=== PATIENT | male | born 1975 | race Caucasian/White ===

== ENCOUNTER 2016-07-30 13:15 | Outpatient (CLI) | payer MEDICAID | END 2016-07-30 13:16 | disposition home or self-care (01) | DX: Z79.899 Other long term (current) drug therapy (principal); I80.209 Phlebitis and thrombophlebitis of unspecified deep vessels of unspecified lower extremity ==

== ENCOUNTER 2016-08-23 12:30 | Outpatient (CLI) | payer MEDICAID | END 2016-08-23 12:31 | disposition home or self-care (01) | DX: I80.209 Phlebitis and thrombophlebitis of unspecified deep vessels of unspecified lower extremity (principal); Z79.899 Other long term (current) drug therapy ==

== ENCOUNTER 2016-08-28 14:31 | Outpatient (CLI) | payer MEDICAID | END 2016-08-28 14:32 | disposition home or self-care (01) | DX: Z79.899 Other long term (current) drug therapy (principal); I80.209 Phlebitis and thrombophlebitis of unspecified deep vessels of unspecified lower extremity ==

== ENCOUNTER 2016-09-10 13:46 | Outpatient (CLI) | payer MEDICAID | END 2016-09-10 13:47 | disposition home or self-care (01) | DX: I80.209 Phlebitis and thrombophlebitis of unspecified deep vessels of unspecified lower extremity (principal); Z79.899 Other long term (current) drug therapy ==

== ENCOUNTER 2016-09-16 12:32 | Outpatient (CLI) | payer MEDICAID | END 2016-09-16 12:33 | disposition home or self-care (01) | DX: Z79.899 Other long term (current) drug therapy (principal); I80.209 Phlebitis and thrombophlebitis of unspecified deep vessels of unspecified lower extremity; E66.9 Obesity, unspecified; E78.5 Hyperlipidemia, unspecified; I10 Essential (primary) hypertension ==

== ENCOUNTER 2016-09-24 14:31 | Outpatient (CLI) | payer MEDICAID | END 2016-09-24 14:32 | disposition home or self-care (01) | DX: I80.209 Phlebitis and thrombophlebitis of unspecified deep vessels of unspecified lower extremity (principal); Z79.899 Other long term (current) drug therapy ==

== ENCOUNTER 2016-10-02 08:00 | Outpatient (CLI) | payer MEDICAID | END 2016-10-02 08:01 | disposition home or self-care (01) | DX: Z79.899 Other long term (current) drug therapy (principal); I80.209 Phlebitis and thrombophlebitis of unspecified deep vessels of unspecified lower extremity ==

== ENCOUNTER 2016-10-08 12:29 | Outpatient (CLI) | payer MEDICAID | END 2016-10-08 12:30 | disposition home or self-care (01) | DX: Z79.899 Other long term (current) drug therapy (principal); I80.209 Phlebitis and thrombophlebitis of unspecified deep vessels of unspecified lower extremity ==

== ENCOUNTER 2016-10-25 12:29 | Outpatient (CLI) | payer MEDICAID | END 2016-10-25 12:30 | disposition home or self-care (01) | DX: Z79.899 Other long term (current) drug therapy (principal); I80.209 Phlebitis and thrombophlebitis of unspecified deep vessels of unspecified lower extremity ==

== ENCOUNTER 2016-10-30 12:30 | Outpatient (CLI) | payer MEDICAID | END 2016-10-30 12:31 | disposition home or self-care (01) | DX: Z79.899 Other long term (current) drug therapy (principal); I80.209 Phlebitis and thrombophlebitis of unspecified deep vessels of unspecified lower extremity ==

== ENCOUNTER 2016-11-05 08:00 | Outpatient (CLI) | payer MEDICAID | END 2016-11-05 08:01 | disposition home or self-care (01) | DX: I80.209 Phlebitis and thrombophlebitis of unspecified deep vessels of unspecified lower extremity (principal); Z79.899 Other long term (current) drug therapy ==

== ENCOUNTER 2016-11-13 12:36 | Outpatient (CLI) | payer MEDICAID | END 2016-11-13 12:37 | disposition home or self-care (01) | DX: Z79.899 Other long term (current) drug therapy (principal); I80.209 Phlebitis and thrombophlebitis of unspecified deep vessels of unspecified lower extremity ==

== ENCOUNTER 2016-12-02 12:31 | Outpatient (CLI) | payer MEDICAID | END 2016-12-02 12:32 | disposition home or self-care (01) | DX: I80.209 Phlebitis and thrombophlebitis of unspecified deep vessels of unspecified lower extremity (principal); Z79.899 Other long term (current) drug therapy ==

== ENCOUNTER 2016-12-18 12:28 | Outpatient (CLI) | payer MEDICAID | END 2016-12-18 12:29 | disposition home or self-care (01) | LOC: LAB 12:28 | PROVIDERS: ATTEND Family Medicine | DX: I80.209 Phlebitis and thrombophlebitis of unspecified deep vessels of unspecified lower extremity (principal); Z79.899 Other long term (current) drug therapy | CPT/HCPCS: 85610 ==

== ENCOUNTER 2017-01-01 12:30 | Outpatient (CLI) | payer MEDICAID | END 2017-01-01 12:31 | disposition home or self-care (01) | LOC: LAB 12:30 | PROVIDERS: ATTEND Family Medicine | DX: I80.209 Phlebitis and thrombophlebitis of unspecified deep vessels of unspecified lower extremity (principal); Z79.899 Other long term (current) drug therapy | CPT/HCPCS: 85610 ==

== ENCOUNTER 2017-01-20 13:21 | Outpatient (CLI) | payer MEDICAID | END 2017-01-20 13:22 | disposition home or self-care (01) | LOC: LAB 13:21 | PROVIDERS: ATTEND Family Medicine | DX: I80.209 Phlebitis and thrombophlebitis of unspecified deep vessels of unspecified lower extremity (principal); Z79.899 Other long term (current) drug therapy | CPT/HCPCS: 85610 ==

== ENCOUNTER 2017-02-07 13:33 | Outpatient (CLI) | payer MEDICAID | END 2017-02-07 13:34 | disposition home or self-care (01) | LOC: LAB 13:33 | PROVIDERS: ATTEND Family Medicine | DX: I80.209 Phlebitis and thrombophlebitis of unspecified deep vessels of unspecified lower extremity (principal); Z79.899 Other long term (current) drug therapy | CPT/HCPCS: 85610 ==

== ENCOUNTER 2017-02-24 14:30 | Outpatient (CLI) | payer MEDICAID | END 2017-02-24 14:31 | disposition home or self-care (01) | LOC: LAB 14:30 | PROVIDERS: ATTEND Family Medicine | DX: I80.209 Phlebitis and thrombophlebitis of unspecified deep vessels of unspecified lower extremity (principal); Z79.899 Other long term (current) drug therapy | CPT/HCPCS: 85610 ==

== ENCOUNTER 2017-03-05 13:34 | Outpatient (CLI) | payer MEDICAID ==
[2017-03-05 14:09] LABS: CALCIUM 9.1 mg/dL (8.5-10.3); POTASSIUM 3.7 mmol/L (3.5-5.0)
== END 2017-03-05 13:35 | disposition home or self-care (01) ==
LOC: LAB 13:34
PROVIDERS: ATTEND Family Medicine
DX: I10 Essential (primary) hypertension (principal); I80.209 Phlebitis and thrombophlebitis of unspecified deep vessels of unspecified lower extremity; Z79.899 Other long term (current) drug therapy
CPT/HCPCS: 36415; 80048; 85610

== ENCOUNTER 2017-03-25 14:30 | Outpatient (CLI) | payer MEDICAID | END 2017-03-25 14:31 | disposition home or self-care (01) | LOC: LAB 14:30 | PROVIDERS: ATTEND Family Medicine | DX: Z79.899 Other long term (current) drug therapy (principal) | CPT/HCPCS: 85610 ==

== ENCOUNTER 2017-04-01 13:32 | Outpatient (CLI) | payer MEDICAID | END 2017-04-01 13:33 | disposition home or self-care (01) | LOC: LAB 13:32 | PROVIDERS: ATTEND Family Medicine | DX: I80.209 Phlebitis and thrombophlebitis of unspecified deep vessels of unspecified lower extremity (principal); Z79.899 Other long term (current) drug therapy | CPT/HCPCS: 85610 ==

== ENCOUNTER 2017-04-22 11:38 | Outpatient (CLI) | payer MEDICAID | END 2017-04-22 11:39 | disposition home or self-care (01) | LOC: LAB 11:38 | PROVIDERS: ATTEND Family Medicine | DX: I80.209 Phlebitis and thrombophlebitis of unspecified deep vessels of unspecified lower extremity (principal); Z79.899 Other long term (current) drug therapy | CPT/HCPCS: 85610 ==

== ENCOUNTER 2017-05-05 11:33 | Outpatient (CLI) | payer MEDICAID | END 2017-05-05 11:34 | disposition home or self-care (01) | LOC: LAB 11:33 | PROVIDERS: ATTEND Family Medicine | DX: Z53.9 Procedure and treatment not carried out, unspecified reason (principal) | CPT/HCPCS: 85610 ==

== ENCOUNTER 2017-05-15 12:07 | Outpatient (CLI) | payer MEDICAID | END 2017-05-15 12:08 | disposition home or self-care (01) | LOC: LAB 12:07 | PROVIDERS: ATTEND Family Medicine | DX: I80.209 Phlebitis and thrombophlebitis of unspecified deep vessels of unspecified lower extremity (principal); Z79.899 Other long term (current) drug therapy | CPT/HCPCS: 85610 ==

== ENCOUNTER 2017-06-16 11:23 | Outpatient (CLI) | payer MEDICAID | END 2017-06-16 11:24 | disposition home or self-care (01) | LOC: LAB 11:23 | PROVIDERS: ATTEND Family Medicine | DX: I80.209 Phlebitis and thrombophlebitis of unspecified deep vessels of unspecified lower extremity (principal); Z79.899 Other long term (current) drug therapy | CPT/HCPCS: 85610 ==

== ENCOUNTER 2017-07-03 13:05 | Outpatient (CLI) | payer MEDICAID | END 2017-07-03 13:06 | disposition home or self-care (01) | LOC: LAB 13:05 | PROVIDERS: ATTEND Family Medicine | DX: I80.209 Phlebitis and thrombophlebitis of unspecified deep vessels of unspecified lower extremity (principal); Z79.899 Other long term (current) drug therapy | CPT/HCPCS: 85610 ==

== ENCOUNTER 2017-07-15 11:31 | Outpatient (CLI) | payer MEDICAID | END 2017-07-15 11:32 | disposition home or self-care (01) | LOC: LAB 11:31 | PROVIDERS: ATTEND Family Medicine | DX: I80.209 Phlebitis and thrombophlebitis of unspecified deep vessels of unspecified lower extremity (principal); Z79.899 Other long term (current) drug therapy | CPT/HCPCS: 85610 ==

== ENCOUNTER 2017-08-07 10:35 | Outpatient (CLI) | payer MEDICAID | END 2017-08-07 10:36 | disposition home or self-care (01) | LOC: LAB 10:35 | PROVIDERS: ATTEND Family Medicine | DX: I80.209 Phlebitis and thrombophlebitis of unspecified deep vessels of unspecified lower extremity (principal); Z79.899 Other long term (current) drug therapy | CPT/HCPCS: 36415; 85610 ==

== ENCOUNTER 2017-09-01 10:31 | Outpatient (CLI) | payer MEDICAID | END 2017-09-01 10:32 | disposition home or self-care (01) | LOC: LAB 10:31 | PROVIDERS: ATTEND Family Medicine | DX: I80.209 Phlebitis and thrombophlebitis of unspecified deep vessels of unspecified lower extremity (principal); Z79.899 Other long term (current) drug therapy | CPT/HCPCS: 85610 ==

== ENCOUNTER 2017-09-04 12:10 | Outpatient (CLI) | payer MEDICAID | END 2017-09-04 12:11 | disposition home or self-care (01) | LOC: LAB 12:10 | PROVIDERS: ATTEND Family Medicine | DX: Z79.899 Other long term (current) drug therapy (principal); I80.209 Phlebitis and thrombophlebitis of unspecified deep vessels of unspecified lower extremity | CPT/HCPCS: 85610 ==

== ENCOUNTER 2017-09-11 15:00 | Outpatient (CLI) | payer MEDICAID | END 2017-09-11 15:01 | disposition home or self-care (01) | LOC: LAB 15:00 | PROVIDERS: ATTEND Family Medicine | DX: I80.209 Phlebitis and thrombophlebitis of unspecified deep vessels of unspecified lower extremity (principal); Z79.899 Other long term (current) drug therapy | CPT/HCPCS: 85610 ==

== ENCOUNTER 2017-09-18 14:48 | Outpatient (CLI) | payer MEDICAID | END 2017-09-18 14:49 | disposition home or self-care (01) | LOC: LAB 14:48 | PROVIDERS: ATTEND Family Medicine | DX: I80.209 Phlebitis and thrombophlebitis of unspecified deep vessels of unspecified lower extremity (principal); Z79.899 Other long term (current) drug therapy | CPT/HCPCS: 85610 ==

== ENCOUNTER 2017-10-07 11:02 | Outpatient (CLI) | payer MEDICAID | END 2017-10-07 11:03 | disposition home or self-care (01) | LOC: LAB 11:02 | PROVIDERS: ATTEND Family Medicine | DX: I80.209 Phlebitis and thrombophlebitis of unspecified deep vessels of unspecified lower extremity (principal); Z79.899 Other long term (current) drug therapy | CPT/HCPCS: 85610 ==

== ENCOUNTER 2017-10-22 14:18 | Outpatient (CLI) | payer MEDICAID ==
[2017-10-22 15:01] LABS: BASOPHILS % (AUTO) 0.6 %; EOSINOPHILS # (AUTO) 0.3 10^3/uL (0.0-0.7); EOSINOPHILS % (AUTO) 4.1 %; HGB - HEMOGLOBIN 15.7 g/dL (14.0-18.0); LYMPHOCYTES # (AUTO) 1.3 10^3/uL (1.5-3.5); LYMPHOCYTES % (AUTO) 18.2 %; MEAN CORPUSCULAR HEMOGLOBIN 29.9 pg (27.0-31.0); MEAN CORPUSCULAR HGB CONC 34.6 g/dL (32.0-36.0); MEAN CORPUSCULAR VOLUME 86.3 fL (80.0-94.0); MEAN PLATELET VOLUME 8.1 fL (7.4-11.4); MONOCYTES # (AUTO) 0.6 10^3/uL (0.0-1.0); MONOCYTES % (AUTO) 8.2 %; NEUTROPHILS # (AUTO) 4.8 10^3/uL (1.5-6.6); NEUTROPHILS % (AUTO) 68.9 %; PLT - PLATELET COUNT 254 10^3/uL (130-450); RED BLOOD COUNT 5.27 10^6/uL (4.70-6.10); RED CELL DISTRIBUTION WIDTH 13.3 % (12.0-15.0); WHITE BLOOD COUNT 6.9 x10^3/uL (4.8-10.8)
[2017-10-22 15:16] LABS: ALBUMIN 3.9 g/dL (3.2-5.5); ALBUMIN/GLOBULIN RATIO 1.3 (1.0-2.2); ALKALINE PHOSPHATASE 72 IU/L (42-121); ALT ALANINE AMINOTRANSFERASE 22 IU/L (10-60); AST ASPARTATE AMINOTRANSFERASE 20 IU/L (10-42); BILIRUBIN,TOTAL 0.7 mg/dL (0.2-1.0); BUN - BLOOD UREA NITROGEN 15 mg/dL (6-20); CALCIUM 8.9 mg/dL (8.5-10.3); CARBON DIOXIDE - CO2 25 mmol/L (21-32); CHLORIDE 104 mmol/L (101-111); CHOL/HDL RATIO 6.5 (<5.0); CHOLESTEROL 215 mg/dL; CREATININE 1.1 mg/dL (0.6-1.2); GFR - MDRD 74 (>89); GLUCOSE 95 mg/dL (70-100); HDL CHOLESTEROL 33 mg/dL; LDL CHOLESTEROL,CALCULATED 152 mg/dL; LDL/HDL RATIO 4.6 (<3.6); SODIUM 135 mmol/L (135-145); VLDL CHOLESTEROL 30 mg/dL
== END 2017-10-22 14:19 | disposition home or self-care (01) ==
LOC: LAB 14:18
PROVIDERS: ATTEND Family Medicine
DX: I80.209 Phlebitis and thrombophlebitis of unspecified deep vessels of unspecified lower extremity (principal); I10 Essential (primary) hypertension; Z51.81 Encounter for therapeutic drug level monitoring; Z79.899 Other long term (current) drug therapy
CPT/HCPCS: 36415; 80053; 80061; 83721; 85025; 85610

== ENCOUNTER 2017-11-05 13:58 | Outpatient (CLI) | payer MEDICAID | END 2017-11-05 13:59 | disposition home or self-care (01) | LOC: LAB 13:58 | PROVIDERS: ATTEND Family Medicine | DX: I80.209 Phlebitis and thrombophlebitis of unspecified deep vessels of unspecified lower extremity (principal); Z79.899 Other long term (current) drug therapy | CPT/HCPCS: 85610 ==

== ENCOUNTER 2017-11-19 14:01 | Outpatient (CLI) | payer MEDICAID | END 2017-11-19 14:02 | disposition home or self-care (01) | LOC: LAB 14:01 | PROVIDERS: ATTEND Family Medicine | DX: I80.209 Phlebitis and thrombophlebitis of unspecified deep vessels of unspecified lower extremity (principal); Z79.899 Other long term (current) drug therapy | CPT/HCPCS: 85610 ==

== ENCOUNTER 2017-12-10 14:02 | Outpatient (CLI) | payer MEDICAID | END 2017-12-10 14:03 | disposition home or self-care (01) | LOC: LAB 14:02 | PROVIDERS: ATTEND Family Medicine | DX: I80.209 Phlebitis and thrombophlebitis of unspecified deep vessels of unspecified lower extremity (principal); Z79.899 Other long term (current) drug therapy | CPT/HCPCS: 85610 ==

== ENCOUNTER 2017-12-30 15:01 | Outpatient (CLI) | payer MEDICAID | END 2017-12-30 15:02 | disposition home or self-care (01) | LOC: LAB 15:01 | PROVIDERS: ATTEND Family Medicine | DX: I80.209 Phlebitis and thrombophlebitis of unspecified deep vessels of unspecified lower extremity (principal); Z79.899 Other long term (current) drug therapy | CPT/HCPCS: 85610 ==

== ENCOUNTER 2018-01-06 13:56 | Outpatient (CLI) | payer MEDICAID | END 2018-01-06 13:57 | disposition home or self-care (01) | LOC: LAB 13:56 | PROVIDERS: ATTEND Family Medicine | DX: I80.209 Phlebitis and thrombophlebitis of unspecified deep vessels of unspecified lower extremity (principal); Z79.899 Other long term (current) drug therapy | CPT/HCPCS: 85610 ==

== ENCOUNTER 2018-01-20 12:11 | Outpatient (CLI) | payer MEDICAID | END 2018-01-20 12:12 | disposition home or self-care (01) | LOC: LAB 12:11 | PROVIDERS: ATTEND Family Medicine | DX: I80.209 Phlebitis and thrombophlebitis of unspecified deep vessels of unspecified lower extremity (principal); Z79.899 Other long term (current) drug therapy | CPT/HCPCS: 85610 ==

== ENCOUNTER 2018-02-10 13:33 | Outpatient (CLI) | payer MEDICAID | END 2018-02-10 13:34 | disposition home or self-care (01) | LOC: LAB 13:33 | PROVIDERS: ATTEND Family Medicine | DX: I80.209 Phlebitis and thrombophlebitis of unspecified deep vessels of unspecified lower extremity (principal); Z79.899 Other long term (current) drug therapy | CPT/HCPCS: 85610 ==

== ENCOUNTER 2018-02-24 13:35 | Outpatient (CLI) | payer MEDICAID | END 2018-02-24 13:36 | disposition home or self-care (01) | LOC: LAB 13:35 | PROVIDERS: ATTEND Family Medicine | DX: I80.209 Phlebitis and thrombophlebitis of unspecified deep vessels of unspecified lower extremity (principal); Z79.899 Other long term (current) drug therapy | CPT/HCPCS: 85610 ==

== ENCOUNTER 2018-03-17 13:34 | Outpatient (CLI) | payer MEDICAID | END 2018-03-17 13:35 | disposition home or self-care (01) | LOC: LAB 13:34 | PROVIDERS: ATTEND Family Medicine | DX: I80.209 Phlebitis and thrombophlebitis of unspecified deep vessels of unspecified lower extremity (principal); Z79.899 Other long term (current) drug therapy | CPT/HCPCS: 85610 ==

== ENCOUNTER 2018-03-31 13:39 | Outpatient (CLI) | payer MEDICAID | END 2018-03-31 13:40 | disposition home or self-care (01) | LOC: LAB 13:39 | PROVIDERS: ATTEND Family Medicine | DX: I80.209 Phlebitis and thrombophlebitis of unspecified deep vessels of unspecified lower extremity (principal); Z79.899 Other long term (current) drug therapy | CPT/HCPCS: 85610 ==

== ENCOUNTER 2018-04-03 10:35 | Outpatient (CLI) | payer MEDICAID | END 2018-04-03 10:36 | disposition home or self-care (01) | LOC: LAB 10:35 | PROVIDERS: ATTEND Family Medicine | DX: I80.209 Phlebitis and thrombophlebitis of unspecified deep vessels of unspecified lower extremity (principal); Z79.899 Other long term (current) drug therapy | CPT/HCPCS: 85610 ==

== ENCOUNTER 2018-04-14 13:36 | Outpatient (CLI) | payer MEDICAID | END 2018-04-14 13:37 | disposition home or self-care (01) | LOC: LAB 13:36 | PROVIDERS: ATTEND Family Medicine | DX: I80.209 Phlebitis and thrombophlebitis of unspecified deep vessels of unspecified lower extremity (principal); Z79.899 Other long term (current) drug therapy | CPT/HCPCS: 85610 ==

== ENCOUNTER 2018-05-12 13:33 | Outpatient (CLI) | payer MEDICAID | END 2018-05-12 13:34 | disposition home or self-care (01) | LOC: LAB 13:33 | PROVIDERS: ATTEND Family Medicine | DX: I80.209 Phlebitis and thrombophlebitis of unspecified deep vessels of unspecified lower extremity (principal); Z79.899 Other long term (current) drug therapy | CPT/HCPCS: 85610 ==

== ENCOUNTER 2018-06-02 13:38 | Outpatient (CLI) | payer MEDICAID | END 2018-06-02 13:39 | disposition home or self-care (01) | LOC: LAB 13:38 | PROVIDERS: ATTEND Family Medicine | DX: I80.209 Phlebitis and thrombophlebitis of unspecified deep vessels of unspecified lower extremity (principal); Z79.899 Other long term (current) drug therapy | CPT/HCPCS: 85610 ==

== ENCOUNTER 2018-06-08 12:14 | Outpatient (CLI) | payer MEDICAID ==
[2018-06-08 12:50] LABS: ALBUMIN 3.9 g/dL (3.2-5.5); ALBUMIN/GLOBULIN RATIO 1.1 (1.0-2.2); ALKALINE PHOSPHATASE 85 IU/L (42-121); ALT ALANINE AMINOTRANSFERASE 20 IU/L (10-60); AST ASPARTATE AMINOTRANSFERASE 19 IU/L (10-42); BILIRUBIN,TOTAL 0.6 mg/dL (0.2-1.0); BUN - BLOOD UREA NITROGEN 12 mg/dL (6-20); CARBON DIOXIDE - CO2 25 mmol/L (21-32); CHLORIDE 104 mmol/L (101-111); CHOL/HDL RATIO 4.6 (<5.0); CHOLESTEROL 188 mg/dL; CREATININE 1.2 mg/dL (0.6-1.2); GFR - MDRD 67 (>89); GLUCOSE 94 mg/dL (70-100); HDL CHOLESTEROL 41 mg/dL; LDL CHOLESTEROL,CALCULATED 115 mg/dL; LDL/HDL RATIO 2.8 (<3.6); SODIUM 134 mmol/L (135-145); TOTAL PROTEIN 7.4 g/dL (6.7-8.2); VLDL CHOLESTEROL 32 mg/dL
[2018-06-08 12:54] LABS: INR 1.5 (0.8-1.2); PT - PROTHROMBIN TIME 16.4 secs (9.9-12.6)
== END 2018-06-08 12:15 | disposition home or self-care (01) ==
LOC: LAB 12:14
PROVIDERS: ATTEND Family Medicine
DX: I80.209 Phlebitis and thrombophlebitis of unspecified deep vessels of unspecified lower extremity (principal); Z79.899 Other long term (current) drug therapy; E78.5 Hyperlipidemia, unspecified; I10 Essential (primary) hypertension
CPT/HCPCS: 36415; 80053; 80061; 83721; 85610

== ENCOUNTER 2018-06-16 13:35 | Outpatient (CLI) | payer MEDICAID | END 2018-06-16 13:36 | disposition home or self-care (01) | LOC: LAB 13:35 | PROVIDERS: ATTEND Family Medicine | DX: I80.209 Phlebitis and thrombophlebitis of unspecified deep vessels of unspecified lower extremity (principal); Z79.899 Other long term (current) drug therapy | CPT/HCPCS: 85610 ==

== ENCOUNTER 2018-07-01 13:31 | Outpatient (CLI) | payer MEDICAID | END 2018-07-01 13:32 | disposition home or self-care (01) | LOC: LAB 13:31 | PROVIDERS: ATTEND Family Medicine | DX: I80.209 Phlebitis and thrombophlebitis of unspecified deep vessels of unspecified lower extremity (principal); Z79.899 Other long term (current) drug therapy | CPT/HCPCS: 85610 ==

== ENCOUNTER 2018-07-06 13:42 | Outpatient (CLI) | payer MEDICAID | END 2018-07-06 13:43 | disposition home or self-care (01) | LOC: LAB 13:42 | PROVIDERS: ATTEND Family Medicine | DX: I80.209 Phlebitis and thrombophlebitis of unspecified deep vessels of unspecified lower extremity (principal); Z79.899 Other long term (current) drug therapy | CPT/HCPCS: 85610 ==

== ENCOUNTER 2018-07-29 16:04 | Outpatient (CLI) | payer MEDICAID | END 2018-07-29 16:05 | disposition home or self-care (01) | LOC: LAB 16:04 | PROVIDERS: ATTEND Nurse Practitioner | DX: Z79.01 Long term (current) use of anticoagulants (principal) | CPT/HCPCS: 85610 ==

== ENCOUNTER 2018-08-11 13:34 | Outpatient (CLI) | payer MEDICAID | END 2018-08-11 13:35 | disposition home or self-care (01) | LOC: LAB 13:34 | PROVIDERS: ATTEND Nurse Practitioner | DX: Z79.01 Long term (current) use of anticoagulants (principal) | CPT/HCPCS: 85610 ==

== ENCOUNTER 2018-08-25 13:32 | Outpatient (CLI) | payer MEDICAID | END 2018-08-25 13:33 | disposition home or self-care (01) | LOC: LAB 13:32 | PROVIDERS: ATTEND Nurse Practitioner | DX: Z79.01 Long term (current) use of anticoagulants (principal) | CPT/HCPCS: 85610 ==

== ENCOUNTER 2018-08-27 12:11 | Outpatient (CLI) | payer MEDICAID | END 2018-08-27 12:12 | disposition home or self-care (01) | LOC: LAB 12:11 | PROVIDERS: ATTEND Nurse Practitioner | DX: Z79.01 Long term (current) use of anticoagulants (principal) | CPT/HCPCS: 85610 ==

== ENCOUNTER 2018-10-13 12:17 | Outpatient (CLI) | payer MEDICAID | END 2018-10-13 12:18 | disposition home or self-care (01) | LOC: LAB 12:17 | PROVIDERS: ATTEND Nurse Practitioner | DX: Z79.01 Long term (current) use of anticoagulants (principal) | CPT/HCPCS: 85610 ==

== ENCOUNTER 2018-11-18 10:33 | Outpatient (CLI) | payer MEDICAID ==
[2018-11-18 11:20] LABS: BASOPHILS # (AUTO) 0.1 10^3/uL (0.0-0.1); BASOPHILS % (AUTO) 1.1 %; EOSINOPHILS # (AUTO) 0.2 10^3/uL (0.0-0.7); EOSINOPHILS % (AUTO) 2.8 %; HGB - HEMOGLOBIN 15.6 g/dL (14.0-18.0); LYMPHOCYTES # (AUTO) 1.3 10^3/uL (1.5-3.5); LYMPHOCYTES % (AUTO) 20.2 %; MEAN CORPUSCULAR HEMOGLOBIN 29.3 pg (27.0-31.0); MEAN CORPUSCULAR HGB CONC 33.5 g/dL (32.0-36.0); MEAN CORPUSCULAR VOLUME 87.5 fL (80.0-94.0); MEAN PLATELET VOLUME 8.3 fL (7.4-11.4); MONOCYTES # (AUTO) 0.7 10^3/uL (0.0-1.0); MONOCYTES % (AUTO) 10.5 %; NEUTROPHILS # (AUTO) 4.3 10^3/uL (1.5-6.6); NEUTROPHILS % (AUTO) 65.4 %; PLT - PLATELET COUNT 354 10^3/uL (130-450); RED BLOOD COUNT 5.33 10^6/uL (4.70-6.10); RED CELL DISTRIBUTION WIDTH 13.8 % (12.0-15.0); WHITE BLOOD COUNT 6.6 x10^3/uL (4.8-10.8)
[2018-11-18 11:22] LABS: ALBUMIN/GLOBULIN RATIO 1.1 (1.0-2.2); BILIRUBIN,TOTAL 0.6 mg/dL (0.2-1.0); CALCIUM 9.4 mg/dL (8.5-10.3); CREATININE 1.3 mg/dL (0.6-1.2); TOTAL PROTEIN 7.6 g/dL (6.7-8.2)
== END 2018-11-18 10:34 | disposition home or self-care (01) ==
LOC: LAB 10:33
PROVIDERS: ATTEND Nurse Practitioner
DX: Z79.01 Long term (current) use of anticoagulants (principal); R63.4 Abnormal weight loss; R63.0 Anorexia; D68.51 Activated protein C resistance
CPT/HCPCS: 36415; 80053; 83735; 85025; 85610

== ENCOUNTER 2018-11-19 01:40 | Outpatient (CLI) | payer MEDICAID | END 2018-11-19 01:41 | disposition critical access hospital (66) | LOC: EMS 01:40 | PROVIDERS: ATTEND Surgery | DX: M54.9 Dorsalgia, unspecified (principal) | CPT/HCPCS: A0425; A0429 ==

== ENCOUNTER 2018-11-19 01:55 | Emergency (ER) | payer MEDICAID ==
[2018-11-19 02:17] LABS: BILIRUBIN,URINE NEGATIVE (NEGATIVE); GLUCOSE, URINE (UA) NEGATIVE (NEGATIVE); KETONES,URINE (UA) 40 mg/dL (NEGATIVE); LEUKOCYTE ESTERASE, URINE NEGATIVE (NEGATIVE); NITRITE,URINE NEGATIVE (NEGATIVE); OCCULT BLOOD,URINE TRACE-LYSE (NEGATIVE); PROTEIN,URINE TRACE mg/dL (NEGATIVE); UROBILINOGEN,URINE 0.2 (NORMAL) E.U./dL (NORMAL)
[2018-11-19 02:18] LABS: CLARITY,URINE CLEAR (CLEAR)
[2018-11-19 02:21] LABS: BASOPHILS # (AUTO) 0.1 10^3/uL (0.0-0.1); BASOPHILS % (AUTO) 1.2 %; EOSINOPHILS % (AUTO) 0.5 %; HGB - HEMOGLOBIN 15.6 g/dL (14.0-18.0); LYMPHOCYTES # (AUTO) 1.1 10^3/uL (1.5-3.5); LYMPHOCYTES % (AUTO) 10.2 %; MEAN CORPUSCULAR HEMOGLOBIN 29.1 pg (27.0-31.0); MEAN CORPUSCULAR HGB CONC 33.9 g/dL (32.0-36.0); MEAN PLATELET VOLUME 8.1 fL (7.4-11.4); MONOCYTES # (AUTO) 0.6 10^3/uL (0.0-1.0); MONOCYTES % (AUTO) 5.4 %; NEUTROPHILS # (AUTO) 8.5 10^3/uL (1.5-6.6); NEUTROPHILS % (AUTO) 82.7 %; PLT - PLATELET COUNT 366 10^3/uL (130-450); RED BLOOD COUNT 5.35 10^6/uL (4.70-6.10); RED CELL DISTRIBUTION WIDTH 13.9 % (12.0-15.0); WHITE BLOOD COUNT 10.3 x10^3/uL (4.8-10.8)
[2018-11-19 02:26] LABS: ALBUMIN 4.1 g/dL (3.2-5.5); BILIRUBIN,TOTAL 0.8 mg/dL (0.2-1.0); CALCIUM 9.5 mg/dL (8.5-10.3); CREATININE 1.3 mg/dL (0.6-1.2); TOTAL PROTEIN 8.2 g/dL (6.7-8.2)
--- NOTE | 2018-11-19 02:52 | ED Physician Documentation ---
PD HPI BACK PAIN - Stated complaint Stated Complaint: BACK PAIN, N/V - Chief complaint Chief Complaint: Back Pain - History obtained from History obtained from: Patient - History of Present Illness Timing - onset: Enter time (21:00), Today Timing - details: Abrupt onset, Waxing and waning Pain level now: 8 Location: Mid, Lower Quality: Pain Associated symptoms: No: Fever Improves with: Nothing Worsened by: Other (no apparent exacerbating factors) Similar symptoms before: No diagnosis - Additional information Additional information: c/o midline back pain radiating around right flank to RUQ with nausea, vomiting; sudden onset 9 PM. He describes recurrent problems with vomiting with PO intake over several weeks but without pain, and he is scheduled to have outpatient US to assess this symptom. Review of Systems Constitutional: reports: Reviewed and negative Cardiac: reports: Reviewed and negative Respiratory: reports: Reviewed and negative GI: reports: Abdominal Pain, Nausea, Vomiting. denies: Abdominal Swelling, Constipation, Diarrhea : denies: Dysuria, Frequency, Hematuria Skin: reports: Reviewed and negative Musculoskeletal: reports: Back pain PD PAST MEDICAL HISTORY - Past Medical History Past Medical History: Yes Cardiovascular: Hypertension, Deep vein thrombosis Respiratory: None Endocrine/Autoimmune: None GI: GERD, Diverticulitis : None HEENT: None Psych: Depression, Anxiety Musculoskeletal: None Derm: None Other Past Medical History: factor v leiden deficiency - Past Surgical History Past Surgical History: Yes General: EGD Ortho: Other - Present Medications Home Medications: Ambulatory Orders Medication Instructions Recorded Confirmed Carvedilol [Coreg] 12.5 mg PO BID 11/26/12 09/27/15 Lisinopril [Zestril] 20 mg PO DAILY 11/26/12 11/19/18 Omeprazole 20 mg PO QAM 11/26/12 09/27/15 Warfarin [Coumadin] 9 mg PO 1400 11/26/12 09/27/15 buPROPion HCl [Wellbutrin Sr] 400 mg PO ONCEDAILY 11/26/12 09/27/15 Atorvastatin [Lipitor] 20 mg PO DAILY 09/05/15 09/27/15 Doxycycline Hyclate 100 mg PO DAILY 09/05/15 09/27/15 Topiramate 100 mg PO DAILY 09/05/15 09/27/15 Venlafaxine [Effexor] 75 mg PO DAILY 09/05/15 09/27/15 Ondansetron Odt [Zofran] 4 mg TL Q6H PRN #10 tablet 11/19/18 cloNIDine [Catapres] 0.1 mg PO DAILY 11/19/18 11/19/18 oxyCODONE [Roxicodone] 5 - 10 mg PO Q6H PRN #20 tablet 11/19/18 - Allergies Allergies/Adverse Reactions: Allergies Allergy/AdvReac Type Severity Reaction Status Date / Time No Known Drug Allergies Allergy Verified 11/19/18 02:57 - Social History Does the pt smoke?: Yes Smoking Status: Current every day smoker Does the pt drink ETOH?: No PD ED PE NORMAL - Vitals Vital signs reviewed: Yes - General General: Alert and oriented X 3, Well developed/nourished, Other (appears to be in moderate painful distress) - HEENT HEENT: Moist mucous membranes - Neck Neck: Supple, no meningeal sign - Cardiac Cardiac: RRR, No murmur - Respiratory Respiratory: No respiratory distress, Clear bilaterally - Abdomen Abdomen: Soft, Non distended, Other (mild TTP RUQ>RLQ without rebound or gu arding) - Back Back: No CVA TTP, No spinal TTP - Derm Derm: Normal color, Warm and dry, No rash Results - Vitals Vitals: Oxygen O2 Source Room air - Labs Labs: Laboratory Tests 11/19/18 11/19/18 11/19/18 02:05 02:05 02:10 WBC 10.3 RBC 5.35 Hgb 15.6 Hct 46.0 MCV 86.0 MCH 29.1 MCHC 33.9 RDW 13.9 Plt Count 366 MPV 8.1 Neut # (Auto) 8.5 H Lymph # (Auto) 1.1 L [place] # (Auto) 0.6 Eos # (Auto) 0.0 Baso # (Auto) 0.1 Absolute Nucleated RBC 0.02 Nucleated RBC % 0.2 Sodium 137 Potassium 3.7 Chloride 101 Carbon Dioxide 21 Anion Gap 15.0 H BUN 13 Creatinine 1.3 H Estimated GFR (MDRD) 61 L Glucose 137 H Calcium 9.5 Total Bilirubin 0.8 AST 22 ALT 18 Alkaline Phosphatase 98 Total Protein 8.2 Albumin 4.1 Globulin 4.1 Albumin/Globulin Ratio 1.0 Lipase 37 Urine Color YELLOW Urine Clarity CLEAR Urine pH 7.0 Ur Specific [place] 1.015 Urine Protein TRACE Urine Glucose (UA) NEGATIVE Urine Ketones 40 H Urine Occult Blood TRACE-LYSE Urine Nitrite NEGATIVE Urine Bilirubin NEGATIVE Urine Urobilinogen 0.2 (NORMAL) Ur Leukocyte Esterase NEGATIVE Ur Microscopic Review NOT INDICATED Urine Culture Comments NOT INDICATED - Rads (name of study) CT A/P Radiology: Prelim report reviewed, See rad report US abdomen (complete) Radiology: Prelim report reviewed, See rad report PD MEDICAL DECISION MAKING - ED course Complexity details: reviewed results, re-evaluated patient, considered differential, d/w patient ED course: Symptoms responded to IV fluids, zofran, toradol, morphine, and dilaudid. He did require repeat doses of the narcotic medication; he responded to each dose but given repeat doses for recurrence of the pain. We discussed option of admission to the hospital for further treatment and surgical evaluation; he prefers d/c home, as his symptoms have been adequately controlled with the above medications. He expresses concern regarding surgery due to his warfarin; I explained to him that this could be reversed with medication should he require surgery, but that d/c home is reasonable if symptoms are controlled and given lack of fever and reassuring blood tests. He understands he needs to follow up outpatient even if symptoms resolved, and to return immediately if worse in any way. Departure - Departure Disposition: 01 Home, Self Care Clinical Impression: Biliary colic Condition: Good Instructions: ED Gallstone W Biliary Colic Follow-Up: Miki Haley MD [Provider Admit Priv/Credential] - (Call this morning to arrange for next available appointment) Shaunna Garcia DNP [Primary Care Provider] - Prescriptions: Ondansetron Odt [Zofran] 4 mg TL Q6H PRN #10 tablet PRN Reason: Nausea / Vomiting oxyCODONE [Roxicodone] 5 - 10 mg PO Q6H PRN #20 tablet PRN Reason: Pain Discharge Date/Time: 11/19/18 07:49
[2018-11-19] MEDS ORDERED: HYDROmorphone 1 MG/ML CARPUJECT IVP STA ×2 (03:06→04:01)
[2018-11-19] MEDS ORDERED: ONDANSETRON 4 MG/2 ML VIAL IVP STA ×3 (03:06→06:21)
[2018-11-19] MEDS ORDERED: IOVERSOL 320 100 ML VIAL IVP ONE ×2 (03:21→03:40)
--- NOTE | 2018-11-19 03:59 | CT Report ---
Reason: back/abd. pain Procedure Date: 11/19/2018 Accession Number: [id number] / [id number] Procedure: CT - Abdomen/Pelvis W CPT Code: FULL RESULT: EXAM: CT ABDOMEN AND PELVIS EXAM DATE: 11/19/2018 03:42 AM. CLINICAL HISTORY: Back/abdomen pain. COMPARISONS: 07/19/2012 3:23 PM. TECHNIQUE: Routine helical CT imaging was performed through the abdomen and pelvis. IV contrast: 100 mL Optiray 320. Enteric contrast: No. Reconstructions: Coronal and sagittal. In accordance with CT protocol optimization, one or more of the following dose reduction techniques were utilized for this exam: automated exposure control, adjustment of mA and/or KV based on patient size, or use of iterative reconstructive technique. FINDINGS: ABDOMEN: Liver: No significant abnormality. Stomach/Distal Esophagus: No significant abnormality. Gallbladder: There is wall thickening of the gallbladder coupled with pericholecystic stranding. No definite calcified gallstones evident on this exam. Bile Ducts: No significant abnormality. Pancreas: No significant abnormality. Spleen: No significant abnormality. Kidneys: No suspicious solid appearing lesion. No hydronephrosis. Adrenals: No significant abnormality. Bowel: No obstruction. Average fecal residual. Severe sigmoid diverticulosis without evidence of acute diverticulitis. Mild to moderate descending colon diverticulosis also present. Appendix: Normal. Lymph Nodes: No pathologically enlarged nodes. Vasculature: Normal caliber aorta. Fluid: No significant free fluid. Abdominal Wall: No significant abnormality. Other: No significant abnormality. PELVIS: Prostate and Seminal Vesicles: No significant abnormality. Bladder: No significant abnormality. Lymph Nodes: No pathologically enlarged nodes. Fluid: No significant free fluid. Other: There are small to medium sized bilateral fat-containing inguinal hernias. BONES: No suspicious bony lesions. Multilevel degenerative changes within the spine. LOWER CHEST: No significant consolidation or effusion. IMPRESSION: 1. There is wall thickening of the gallbladder, coupled with pericholecystic stranding. Findings suggest early cholecystitis. Further assessment recommended with a right upper quadrant ultrasound. 2. Severe sigmoid diverticulosis without definite acute diverticulitis. RADIA
[2018-11-19] MEDS ORDERED: SODIUM CHLORIDE 0.9% 1,000 ML IV STA (04:00)
[2018-11-19] MEDS ORDERED: KETOROLAC 30 MG/ML VIAL IVP STA (04:34)
[2018-11-19] MEDS ORDERED: PANTOPRAZOLE 40 MG VIAL IVP STA (06:20)
[2018-11-19] MEDS ORDERED: MORPHINE 2 MG/ML SYRINGE IVP STA (06:21)
--- NOTE | 2018-11-19 06:41 | Ultrasound Report ---
Reason: abd. pain Procedure Date: 11/19/2018 Accession Number: [id number] / [id number] Procedure: US - Abdomen Complete CPT Code: FULL RESULT: EXAM: ABDOMEN ULTRASOUND EXAM DATE: 11/19/2018 06:07 AM. CLINICAL HISTORY: Abdominal pain and back pain. Abnormal gallbladder on CT. COMPARISON: CT, 11/19/2018. TECHNIQUE: Real-time scanning was performed with static images obtained. FINDINGS: Liver: Possible fatty infiltration. 18.8 cm. Main portal vein flow: Hepatopetal. Gallbladder: Nonmobile 1.8 cm stone at the gallbladder neck. Mild gallbladder wall thickening at 4.3 mm. Biliary System: Common bile duct measures 4.7 mm. No intrahepatic or extrahepatic ductal dilatation. Pancreas: Poorly seen due to bowel gas. No abnormality identified. Kidneys: Right: 11.0 cm longitudinally. Normal. No contour-deforming mass, stones, or hydronephrosis. Left: 12.3 cm longitudinally. Possible cyst measuring 1.6 x 1.1 x 1.2 cm. No contour-deforming mass, stones, or hydronephrosis. Spleen: 11.4 cm. No focal abnormality seen. Aorta and Inferior Vena Cava: Unremarkable where seen. Other: Images are degraded due to body habitus and bowel gas. IMPRESSION: 1. Nonmobile stone at the gallbladder neck with mild wall thickening. There could be early cholecystitis. 2. No biliary dilatation seen. 3. Possible fatty liver. 4. No other acute abnormality seen. RADIA
[2018-11-19] MEDS ORDERED: cloNIDine 0.1 MG TABLET PO STA (06:44)
[2018-11-19] MEDS ORDERED: oxyCODONE 5 MG TABLET PO STA (07:03)
[2018-11-19 07:35] VITALS: BP 223/142
== END 2018-11-19 07:49 | disposition home or self-care (01) ==
LOC: ED 01:55
DX: K80.50 Calculus of bile duct without cholangitis or cholecystitis without obstruction (principal); I10 Essential (primary) hypertension; D68.2 Hereditary deficiency of other clotting factors; F17.200 Nicotine dependence, unspecified, uncomplicated; Z86.718 Personal history of other venous thrombosis and embolism; Z79.01 Long term (current) use of anticoagulants
CPT/HCPCS: 36415; 74177; 76700; 80053; 81003; 83690; 85025; 96361; 96374; 96375; 96376; 99284; A9270; J1170; J2270; Q9967; 81001; 87086

== ENCOUNTER 2018-11-25 16:37 | Outpatient (CLI) | payer MEDICAID | END 2018-11-25 16:38 | disposition home or self-care (01) | LOC: LAB 16:37 | PROVIDERS: ATTEND Nurse Practitioner | DX: Z79.01 Long term (current) use of anticoagulants (principal) | CPT/HCPCS: 85610 ==

== ENCOUNTER 2018-11-26 11:36 | Outpatient (CLI) | payer MEDICAID | END 2018-11-26 11:37 | disposition home or self-care (01) | LOC: LAB 11:36 | PROVIDERS: ATTEND Nurse Practitioner | DX: Z79.01 Long term (current) use of anticoagulants (principal) | CPT/HCPCS: 85610 ==

== ENCOUNTER 2018-11-30 10:50 | Outpatient (CLI) | payer MEDICAID | END 2018-11-30 10:51 | disposition home or self-care (01) | LOC: LAB 10:50 | PROVIDERS: ATTEND Physician Assistant Medical | DX: Z51.81 Encounter for therapeutic drug level monitoring (principal); Z79.01 Long term (current) use of anticoagulants | CPT/HCPCS: 85610 ==

== ENCOUNTER 2018-12-04 07:30 | Outpatient (CLI) | payer MEDICAID | END 2018-12-04 07:31 | disposition home or self-care (01) | LOC: LAB 07:30 | PROVIDERS: ATTEND Physician Assistant Medical | DX: Z51.81 Encounter for therapeutic drug level monitoring (principal); Z79.01 Long term (current) use of anticoagulants | CPT/HCPCS: 85610 ==

== ENCOUNTER 2018-12-07 10:12 | Outpatient (CLI) | payer MEDICAID | END 2018-12-07 10:13 | disposition home or self-care (01) | LOC: LAB 10:12 | PROVIDERS: ATTEND Physician Assistant Medical | DX: Z51.81 Encounter for therapeutic drug level monitoring (principal); Z79.01 Long term (current) use of anticoagulants | CPT/HCPCS: 85610 ==

== ENCOUNTER 2018-12-09 09:36 | Outpatient (CLI) | payer MEDICAID | END 2018-12-09 09:37 | disposition home or self-care (01) | LOC: LAB 09:36 | PROVIDERS: ATTEND Physician Assistant Medical | DX: Z51.81 Encounter for therapeutic drug level monitoring (principal); Z79.01 Long term (current) use of anticoagulants | CPT/HCPCS: 85610 ==

== ENCOUNTER 2018-12-11 10:28 | Outpatient (CLI) | payer MEDICAID | END 2018-12-11 10:29 | disposition home or self-care (01) | LOC: LAB 10:28 | PROVIDERS: ATTEND Physician Assistant Medical | DX: Z51.81 Encounter for therapeutic drug level monitoring (principal); Z79.01 Long term (current) use of anticoagulants | CPT/HCPCS: 85610 ==

== ENCOUNTER 2018-12-18 12:10 | Outpatient (CLI) | payer MEDICAID | END 2018-12-18 12:11 | disposition home or self-care (01) | LOC: LAB 12:10 | PROVIDERS: ATTEND Physician Assistant Medical | DX: Z51.81 Encounter for therapeutic drug level monitoring (principal); Z79.01 Long term (current) use of anticoagulants | CPT/HCPCS: 85610 ==

== ENCOUNTER 2018-12-18 13:01 | Emergency (ER) | payer MEDICAID ==
[2018-12-18 14:04] LABS: BASOPHILS # (AUTO) 0.1 10^3/uL (0.0-0.1); BASOPHILS % (AUTO) 1.4 %; EOSINOPHILS # (AUTO) 0.1 10^3/uL (0.0-0.7); EOSINOPHILS % (AUTO) 2.1 %; HGB - HEMOGLOBIN 14.9 g/dL (14.0-18.0); LYMPHOCYTES # (AUTO) 1.1 10^3/uL (1.5-3.5); LYMPHOCYTES % (AUTO) 15.7 %; MEAN CORPUSCULAR HEMOGLOBIN 29.9 pg (27.0-31.0); MEAN CORPUSCULAR HGB CONC 33.8 g/dL (32.0-36.0); MEAN CORPUSCULAR VOLUME 88.5 fL (80.0-94.0); MEAN PLATELET VOLUME 8.2 fL (7.4-11.4); MONOCYTES # (AUTO) 0.6 10^3/uL (0.0-1.0); MONOCYTES % (AUTO) 8.9 %; NEUTROPHILS # (AUTO) 4.9 10^3/uL (1.5-6.6); NEUTROPHILS % (AUTO) 71.9 %; PLT - PLATELET COUNT 287 10^3/uL (130-450); RED CELL DISTRIBUTION WIDTH 13.8 % (12.0-15.0); WHITE BLOOD COUNT 6.8 x10^3/uL (4.8-10.8)
[2018-12-18 14:06] LABS: CALCIUM 9.6 mg/dL (8.5-10.3); CREATININE 1.7 mg/dL (0.6-1.2)
[2018-12-18 14:11] LABS: PT - PROTHROMBIN TIME 93.9 secs (9.9-12.6)
[2018-12-18 14:13] LABS: INR 8.6 (0.8-1.2)
--- NOTE | 2018-12-18 14:27 | ED Physician Documentation ---
History of Present Illness - Stated complaint Stated Complaint: HIGH INR/SENT BY - Chief complaint Chief Complaint: General - History obtained from History obtained from: Patient - History of Present Illness Timing: Today (referred to ER by PCP office when got an INR reading of 8. Last week was normal at 2-3 range.) Severity Comments: he has been feeling ill with less intake and today had his INR checked at 8 Quality: He states he has had problems with his INR even when on steady foods and fluids. Has been unable to keep it in good therapeutic range. Review of Systems Nose: denies: Epistaxis GI: denies: Bloody / black stool Endocrine: reports: Easy bruising / bleeding. denies: Weight loss PD PAST MEDICAL HISTORY - Past Medical History Past Medical History: Yes Cardiovascular: Hypertension, Deep vein thrombosis Respiratory: None Endocrine/Autoimmune: None GI: GERD, Diverticulitis : None HEENT: None Psych: Depression, Anxiety Musculoskeletal: None Derm: None - Past Surgical History Past Surgical History: Yes General: EGD Ortho: Other - Present Medications Home Medications: Ambulatory Orders Medication Instructions Recorded Confirmed Carvedilol [Coreg] 12.5 mg PO BID 11/26/12 09/27/15 Lisinopril [Zestril] 20 mg PO DAILY 11/26/12 11/19/18 Omeprazole 20 mg PO QAM 11/26/12 09/27/15 Warfarin [Coumadin] 9 mg PO 1400 11/26/12 09/27/15 buPROPion HCl [Wellbutrin Sr] 400 mg PO ONCEDAILY 11/26/12 09/27/15 Atorvastatin [Lipitor] 20 mg PO DAILY 09/05/15 09/27/15 Doxycycline Hyclate 100 mg PO DAILY 09/05/15 09/27/15 Topiramate 100 mg PO DAILY 09/05/15 09/27/15 Venlafaxine [Effexor] 75 mg PO DAILY 09/05/15 09/27/15 Ondansetron Odt [Zofran] 4 mg TL Q6H PRN #10 tablet 11/19/18 cloNIDine [Catapres] 0.1 mg PO DAILY 11/19/18 11/19/18 oxyCODONE [Roxicodone] 5 - 10 mg PO Q6H PRN #20 tablet 11/19/18 Dicyclomine [Bentyl] 10 mg PO QID PRN #25 capsule 12/18/18 Ondansetron Odt [Zofran] 4 mg TL Q6H PRN #10 tablet 12/18/18 - Allergies Allergies/Adverse Reactions: Allergies Allergy/AdvReac Type Severity Reaction Status Date / Time No Known Drug Allergies Allergy Verified 12/18/18 13:07 - Social History Does the pt smoke?: Yes Smoking Status: Current every day smoker Does the pt drink ETOH?: No PD ED PE NORMAL - Vitals Vital signs reviewed: Yes - General General: Alert and oriented X 3, No acute distress, Well developed/nourished - Derm Derm: Normal color, Warm and dry - Neuro Neuro: Alert and oriented X 3, No motor deficit, Normal speech Results - Vitals Vitals: Oxygen O2 Source Room air - Labs Labs: Laboratory Tests 12/18/18 12/18/18 12/18/18 13:35 13:50 13:50 WBC 6.8 RBC 5.00 Hgb 14.9 Hct 44.2 MCV 88.5 MCH 29.9 MCHC 33.8 RDW 13.8 Plt Count 287 MPV 8.2 Neut # (Auto) 4.9 Lymph # (Auto) 1.1 L [place] # (Auto) 0.6 Eos # (Auto) 0.1 Baso # (Auto) 0.1 Absolute Nucleated RBC 0.01 Nucleated RBC % 0.1 PT 93.9 H INR 8.6 H* Whole Blood INR 7.8 H* Sodium Potassium Chloride Carbon Dioxide Anion Gap BUN Creatinine Estimated GFR (MDRD) Glucose Calcium 12/18/18 13:50 WBC RBC Hgb Hct MCV MCH MCHC RDW Plt Count MPV Neut # (Auto) Lymph # (Auto) [place] # (Auto) Eos # (Auto) Baso # (Auto) Absolute Nucleated RBC Nucleated RBC % PT INR Whole Blood INR Sodium 138 Potassium 4.3 Chloride 104 Carbon Dioxide 24 Anion Gap 10.0 BUN 12 Creatinine 1.7 H Estimated GFR (MDRD) 45 L Glucose 91 Calcium 9.6 PD MEDICAL DECISION MAKING - ED course Complexity details: reviewed results, considered differential (referenced Uptodate and treatment in his range would be either just holding it for 2 days or a small dose vitamin K and holding. ), d/w patient Departure - Departure Disposition: 01 Home, Self Care Clinical Impression: Supratherapeutic international normalized ratio (INR) Condition: Stable Record reviewed to determine appropriate education?: Yes Follow-Up: Hardeep Villa PA-C [Primary Care Provider] - Prescriptions: Dicyclomine [Bentyl] 10 mg PO QID PRN #25 capsule PRN Reason: Abdominal Pain Ondansetron Odt [Zofran] 4 mg TL Q6H PRN #10 tablet PRN Reason: Nausea / Vomiting Comments: Hold your Coumadin tonight and tomorrow night and then resume your usual dose. Recheck your INR in 2 to 3 days if possible or Friday at the latest. Use ondansetron if needed for nausea and dicyclomine for gallbladder cramping and pains. See if this improves your ability to eat and stay hydrated. Given the range of results on your INR level and the difficulty maintaining a good therapeutic dose, I would suggest checking with your primary care to see if they can change you to 1 of the oral anticoagulants such as Xarelto which will be more beneficial for you due to the variability of your Coumadin absorption. Discharge Date/Time: 12/18/18 15:07
[2018-12-18] MEDS ORDERED: CHERRY SYRUP 10 ML UDC PO ONE (14:40)
[2018-12-18] MEDS ORDERED: PHYTONADIONE 10 MG/ML AMP PO ONE (14:40)
[2018-12-18 14:57] VITALS: BP 126/86
== END 2018-12-18 15:07 | disposition home or self-care (01) ==
LOC: ED 13:01
DX: R79.1 Abnormal coagulation profile (principal); I10 Essential (primary) hypertension; Z86.718 Personal history of other venous thrombosis and embolism; F17.200 Nicotine dependence, unspecified, uncomplicated; Z51.81 Encounter for therapeutic drug level monitoring; Z79.01 Long term (current) use of anticoagulants
CPT/HCPCS: 36415; 80048; 85025; 85610; 99283

== ENCOUNTER 2018-12-22 08:00 | Outpatient (CLI) | payer MEDICAID | END 2018-12-22 23:59 | disposition home or self-care (01) | LOC: LAB.N 08:00 | PROVIDERS: ATTEND Physician Assistant Medical | DX: Z51.81 Encounter for therapeutic drug level monitoring (principal); Z79.01 Long term (current) use of anticoagulants | CPT/HCPCS: 85610 ==

== ENCOUNTER 2018-12-25 11:58 | Outpatient (CLI) | payer MEDICAID | END 2018-12-25 11:59 | disposition home or self-care (01) | LOC: LAB 11:58 | PROVIDERS: ATTEND Physician Assistant Medical | DX: Z51.81 Encounter for therapeutic drug level monitoring (principal); Z79.01 Long term (current) use of anticoagulants | CPT/HCPCS: 85610 ==

== ENCOUNTER 2018-12-30 11:43 | Outpatient (CLI) | payer MEDICAID | END 2018-12-30 11:44 | disposition home or self-care (01) | LOC: LAB 11:43 | PROVIDERS: ATTEND Physician Assistant Medical | DX: Z51.81 Encounter for therapeutic drug level monitoring (principal); Z79.01 Long term (current) use of anticoagulants | CPT/HCPCS: 85610 ==

== ENCOUNTER 2019-01-01 10:08 | Outpatient (CLI) | payer MEDICAID | END 2019-01-01 10:09 | disposition home or self-care (01) | LOC: LAB 10:08 | PROVIDERS: ATTEND Physician Assistant Medical | DX: Z51.81 Encounter for therapeutic drug level monitoring (principal); Z79.01 Long term (current) use of anticoagulants | CPT/HCPCS: 85610 ==

== ENCOUNTER 2019-01-04 08:00 | Outpatient (CLI) | payer MEDICAID | END 2019-01-04 23:59 | disposition home or self-care (01) | LOC: LAB.N 08:00 | PROVIDERS: ATTEND Physician Assistant Medical | DX: Z51.81 Encounter for therapeutic drug level monitoring (principal); Z79.01 Long term (current) use of anticoagulants | CPT/HCPCS: 85610 ==

== ENCOUNTER 2019-01-11 08:20 | Day surgery (SDC) | payer MEDICAID ==
[~2019-01-11 08:20] MED LIST: BUPIVACAINE 0.5%-EPI 1:200000 PF 30 ML VIAL ONE
--- NOTE | 2019-01-11 08:58 | ANESTHESIA ---
Pre-Anesthesia VS, & Labs - Diagnosis cholelithiasis - Procedure laparoscopic cholecystectomy with possible IOC Vital Signs: Temp Pulse Resp BP Pulse Ox 36.8 C 104 H 18 156/113 H 98 01/11/19 08:42 01/11/19 08:42 01/11/19 08:42 01/11/19 08:42 01/11/19 08:42 Height 5 ft 7 in Weight (kg) 141.7 kg Body Mass Index 48.0 - NPO >8 hours - Lab Results Lab results reviewed: Yes Home Medications and Allergies Home Medications: Ambulatory Orders Cyclobenzaprine [Flexeril] 10 mg PO BID PRN 01/07/19 EPINEPHrine [Epinephrine] 0.3 mg IJ ONCE PRN 01/07/19 Meloxicam 7.5 mg PO DAILY PRN 01/07/19 Quetiapine Fumarate [Seroquel] 300 mg PO DAILY 01/07/19 Rivaroxaban [Xarelto] 12 mg PO DAILYWM 01/07/19 Temazepam [Restoril] 30 mg PO QPM PRN 01/07/19 Topiramate 25 mg PO DAILY 01/07/19 Active Medications Cefazolin Sodium 3 gm/ Sodium (Chloride) 100 mls @ 200 mls/hr IV ONCE ONE Stop: 01/11/19 10:29 Carvedilol [Coreg] 12.5 mg PO BID 11/26/12 Lisinopril [Zestril] 40 mg PO DAILY 11/26/12 buPROPion HCl [Wellbutrin Sr] 400 mg PO ONCEDAILY 11/26/12 Atorvastatin [Lipitor] 20 mg PO QPM 09/05/15 Topiramate 100 mg PO QPM 09/05/15 Venlafaxine [Effexor] 75 mg PO DAILY 09/05/15 cloNIDine [Catapres] 0.1 mg PO BID 11/19/18 Cyclobenzaprine [Flexeril] 10 mg PO BID PRN 01/07/19 EPINEPHrine [Epinephrine] 0.3 mg IJ ONCE PRN 01/07/19 Meloxicam 7.5 mg PO DAILY PRN 01/07/19 Quetiapine Fumarate [Seroquel] 300 mg PO DAILY 01/07/19 Rivaroxaban [Xarelto] 12 mg PO DAILYWM 01/07/19 Temazepam [Restoril] 30 mg PO QPM PRN 01/07/19 Topiramate 25 mg PO DAILY 01/07/19 Allergies/Adverse Reactions: Allergies Allergy/AdvReac Type Severity Reaction Status Date / Time bee venom protein (honey bee) Allergy Anaphylaxis Verified 01/07/19 13:03 Fish Containing Products Allergy Hives Verified 01/07/19 13:03 shellfish derived Allergy Anaphylaxis Verified 01/07/19 13:03 olive extract AdvReac Nausea Verified 01/11/19 08:40 Anes History & Medical History - Anesthetic History Anesthesia Complications: reports: No previous complications Family history of Anesthesia Complications: Denies Family history of Malignant Hyperthermia: Denies - Medical History Cardiovascular: reports: Hypertension, High cholesterol, Deep vein thrombosis Pulmonary: reports: None Gastrointestinal: reports: GERD, Ulcers, Diverticulitis, Cholelithiasis Urinary: reports: None Musculoskeletal: reports: Chronic back pain Endocrine/Autoimmune: reports: None Skin: reports: None Smoking Status: Current every day smoker - Surgical History General: Colonoscopy, EGD Orthopedic: Other Exam General: Alert, Oriented x3, Cooperative Dental: WNL Mouth Openin Fingerbreadth Neck Mobility: Normal Mallampati classification: II Thyromental Distance: 4-6 cm Respiratory: Lungs clear, Normal breath sounds, No respiratory distress Cardiovascular: Regular rate Neurological: Normal gait, Normal speech Mental/Cognitive Status: Alert/Oriented X3, Normal for patient Cognitive Status: Within normal limits Plan Anesthesia Type: General Consent for Procedure(s) Verified and Reviewed: Yes Code Status: Attempt Resuscitation ASA classification: 2-Mild systemic disease Is this case an emergency?: No
[2019-01-11] MEDS ORDERED: LACTATED RINGERS 1,000 ML IV ONE ×2 (09:06→12:30)
[2019-01-11] MEDS ORDERED: KETOROLAC 30 MG/ML VIAL IVP ONE (09:40)
[2019-01-11] MEDS ORDERED: PROPOFOL 200 MG/20 ML VIAL IVP ONE (09:40)
[2019-01-11] MEDS ORDERED: ONDANSETRON 4 MG/2 ML VIAL IVP ONE (09:40)
[2019-01-11] MEDS ORDERED: fentaNYL 100 MCG/2 ML VIAL IVP ONE (09:40)
[2019-01-11] MEDS ORDERED: MIDAZOLAM 2 MG/2 ML VIAL IVP ONE (09:40)
[2019-01-11] MEDS ORDERED: ACETAMINOPHEN 1,000 MG/100 ML 100 ML IV ONE (09:40)
[2019-01-11] MEDS ORDERED: GLYCOPYRROLATE 1 MG/5 ML VIAL IVP ONE (09:40)
[2019-01-11] MEDS ORDERED: NEOSTIGMINE 1 MG/1 ML 10 ML MDV IVP ONE (09:40)
[2019-01-11] MEDS ORDERED: DEXAMETHASONE 4 MG/ML VIAL IVP ONE (09:40)
[2019-01-11] MEDS ORDERED: ROCURONIUM 50 MG/5 ML VIAL IVP ONE (09:40)
[2019-01-11] MEDS ORDERED: LIDOCAINE-MPF 2% 5 ML VIAL IM ONE (09:40)
[2019-01-11] MEDS ORDERED: ceFAZolin 3 GM in SODIUM CHLORIDE 0.9% 100ML 100 ML IV ONE (10:00)
[2019-01-11] MEDS ORDERED: BUPIVACAINE 0.5%-EPI 1:200000 PF 30 ML VIAL SUBQ ONE ×2 (12:49→14:22)
[2019-01-11] MEDS ORDERED: ACETAMINOPHEN 325 MG TABLET PO PRN (14:39)
[2019-01-11] MEDS ORDERED: oxyCODONE 5 MG TABLET PO PRN ×2 (14:39→16:40)
[2019-01-11] MEDS ORDERED: ONDANSETRON 4 MG/2 ML VIAL IVP PRN (14:39)
[2019-01-11] MEDS ORDERED: IBUPROFEN 600 MG TABLET PO PRN (14:39)
[2019-01-11] MEDS: HYDROmorphone 1 MG/ML CARPUJECT ONE ×2 (15:01→15:08)
[2019-01-11] MEDS ORDERED: ONDANSETRON 4 MG/2 ML VIAL ONE (15:48)
[2019-01-11] MEDS ORDERED: oxyCODONE 5 MG TABLET ONE ×2 (16:11→16:47)
--- NOTE | 2019-01-11 16:16 | OPERATIVE REPORT ---
DATE OF SERVICE: 01/11/2019 Physician: Julien Segal MD PREOPERATIVE DIAGNOSIS: Symptomatic cholelithiasis. POSTOPERATIVE DIAGNOSIS: Acute and chronic calculus cholecystitis. ANESTHESIA: General endotracheal by Best Lin CRNA. SURGEON: Julien Segal MD ESTIMATED BLOOD LOSS: 50 mL COMPLICATIONS: None. DRAINS: A #19 round Asa drain in the subhepatic space. FINDINGS: Laparoscopy revealed a tense, thick walled, subacutely inflamed gallbladder with a large intrahepatic component. Following resection, it was seen to contain a solitary, 2 cm diameter, mixed cholesterol type stone. The visualized portion of the liver, stomach, duodenum, small and large bowel was otherwise within normal limits. Procedure was technically challenging, due to the severe chronic inflammation, a large intrahepatic component and morbid obesity, making dissection from the liver bed difficult. INDICATIONS: Patient is a 43-year-old gentleman with episodes of epigastric pain radiating to the back for the past several months. Evaluation included ultrasound and CT scan showing an abnormal gallbladder with a thickened wall and a solitary 1.8 cm stone in the gallbladder neck. Fatty liver was noted. Liver function tests were negative. He was felt to be suffering from symptomatic gallbladder disease and advised to undergo a laparoscopic cholecystectomy. TECHNIQUE: After informed consent, patient was taken to the operating room, where he was placed under general endotracheal anesthesia. He has a history of factor V Leiden deficiency, and his rivaroxaban was held 48 hours prior to surgery. Sequential calf compression boots were applied. Preoperative preparation also included administration of 3 grams of cefazolin intravenously within an hour of incision. His abdomen, which had been clipped in the ASU, was prepared with ChloraPrep solution and draped in the usual sterile fashion. A transverse incision was made along the superior edge of the umbilicus and carried down through the layers of the abdominal wall until the peritoneum was identified and entered sharply. A 10 mm Donte cannula was inserted. Pneumoperitoneum was achieved with carbon dioxide. A 10 mm, 30-degree Amy telescope was inserted. Laparoscopy was carried out with findings as noted above. Three additional 5 mm ports were placed in the right upper quadrant. Marked truncal obesity and severe chronic inflammation of the gallbladder made the dissection technically difficult. The procedure lasted approximately 120 minutes. The gallbladder was aspirated of approximately 60 mL of pale yellow bile, following which, the gallbladder was grasped and retracted in a cephalad and lateral direction. The cystic triangle of Calot was exposed and was carefully dissected using the hook electrode electrocautery, isolating both cystic duct and cystic artery adjacent to the gallbladder. The critical view of safety was obtained. The cystic duct and artery were each triply clipped distally and doubly proximally adjacent to the gallbladder and then divided between. The gallbladder was dissected from the liver bed with considerable difficulty due to chronic inflammation and a large deep intrahepatic component. The lumen was entered on several occasions. A small remnant of gallbladder wall was left in situ in the depths of the liver bed to minimize excessive bleeding. The gallbladder, together with the stone, were extracted and sent for pathologic evaluation, using an organ retrieval bag. The remnant of the gallbladder wall that was left in situ was cauterized to destroy the mucosa. After hemostasis was achieved, the abdominal cavity was copiously irrigated with saline solution, following which a #19 round Asa drain was placed in the subhepatic space, made to exit the port site in the right upper quadrant lateral port site. It was secured in place with 3-0 nylon suture and connected to bulb suction. The remaining ports were removed under direct vision. Pneumoperitoneum was allowed to escape, and the incisions were closed in layers using continuous 0 Vicryl to reapproximate the midline fascia at the umbilicus, followed by 4-0 Monocryl subcuticular skin closure for the remaining port sites, followed by Dermabond. A dry, sterile dressing was placed around the drain site; 30 mL of 0.5% Marcaine with epinephrine was infiltrated into the incisions for postoperative analgesia. Anesthesia was terminated and patient was transferred to the recovery room in satisfactory condition. Instrument counts were correct x2. A single #19 Asa round drain was used. cc: LIZZY Fitch TD: 01/11/2019 14:56 VISHAL
[2019-01-11 16:31] VITALS: BP 172/105
== END 2019-01-11 08:21 | disposition home or self-care (01) ==
LOC: SDS 08:20
PROVIDERS: ATTEND Internal Medicine Gastroenterology
PROC: 0F544ZZ Destruction of Gallbladder, Percutaneous Endoscopic Approach (ICD-10-PCS; 2019-01-11)
PROC: 0FB44ZZ Excision of Gallbladder, Percutaneous Endoscopic Approach (ICD-10-PCS; principal; 2019-01-11 11:15)
DX: K80.12 Calculus of gallbladder with acute and chronic cholecystitis without obstruction (principal); R63.4 Abnormal weight loss; E66.01 Morbid (severe) obesity due to excess calories; D68.51 Activated protein C resistance; K76.0 Fatty (change of) liver, not elsewhere classified; K21.9 Gastro-esophageal reflux disease without esophagitis; I10 Essential (primary) hypertension; F17.200 Nicotine dependence, unspecified, uncomplicated; Z86.718 Personal history of other venous thrombosis and embolism; Z79.01 Long term (current) use of anticoagulants; Z87.19 Personal history of other diseases of the digestive system; Z79.899 Other long term (current) drug therapy; Z68.42 Body mass index [BMI] 45.0-49.9, adult
CPT/HCPCS: 47562; A9270; J0131; J1170; J7120

== ENCOUNTER 2019-08-12 12:32 | Outpatient (CLI) | payer MEDICAID ==
[2019-08-12 12:56] LABS: BASOPHILS # (AUTO) 0.1 10^3/uL (0.0-0.1); EOSINOPHILS # (AUTO) 0.2 10^3/uL (0.0-0.7); EOSINOPHILS % (AUTO) 2.3 %; HGB - HEMOGLOBIN 15.3 g/dL (14.0-18.0); LYMPHOCYTES # (AUTO) 1.2 10^3/uL (1.5-3.5); LYMPHOCYTES % (AUTO) 17.6 %; MEAN CORPUSCULAR HEMOGLOBIN 28.8 pg (27.0-31.0); MEAN CORPUSCULAR HGB CONC 32.6 g/dL (32.0-36.0); MEAN CORPUSCULAR VOLUME 88.2 fL (80.0-94.0); MONOCYTES # (AUTO) 0.7 10^3/uL (0.0-1.0); MONOCYTES % (AUTO) 10.6 %; NEUTROPHILS # (AUTO) 4.8 10^3/uL (1.5-6.6); NEUTROPHILS % (AUTO) 67.9 %; PLT - PLATELET COUNT 308 10^3/uL (130-450); RED BLOOD COUNT 5.32 10^6/uL (4.70-6.10); RED CELL DISTRIBUTION WIDTH 12.8 % (12.0-15.0)
[2019-08-12 13:04] LABS: CALCIUM 9.3 mg/dL (8.5-10.3); CREATININE 1.2 mg/dL (0.6-1.2)
== END 2019-08-12 12:33 | disposition home or self-care (01) ==
LOC: LAB 12:32
PROVIDERS: ATTEND Physician Assistant Medical
DX: N18.9 Chronic kidney disease, unspecified (principal)
CPT/HCPCS: 36415; 80048; 85025

== ENCOUNTER 2019-08-23 07:28 | Day surgery (SDC) | payer MEDICAID ==
[2019-08-23] MEDS ORDERED: fentaNYL 250 MCG/5 ML VIAL IVP ONE (07:29)
[2019-08-23] MEDS ORDERED: MIDAZOLAM 2 MG/2 ML VIAL IVP ONE (07:29)
[2019-08-23] MEDS ORDERED: LACTATED RINGERS 1,000 ML IV ONE (07:40)
[2019-08-23] MEDS ORDERED: LIDO GARGLE 30 ML BOTTLE ONE (10:34)
[2019-08-23] MEDS ORDERED: LIDO GARGLE 30 ML BOTTLE PO ONE (10:57)
[2019-08-23 11:48] VITALS: BP 133/85
== END 2019-08-23 07:29 | disposition home or self-care (01) ==
LOC: SDS 07:28
PROVIDERS: ATTEND Internal Medicine Gastroenterology
PROC: 0DB58ZX Excision of Esophagus, Via Natural or Artificial Opening Endoscopic, Diagnostic (ICD-10-PCS; principal; 2019-08-23 09:45)
DX: K21.9 Gastro-esophageal reflux disease without esophagitis (principal); R13.10 Dysphagia, unspecified; K21.0 Gastro-esophageal reflux disease with esophagitis; K44.9 Diaphragmatic hernia without obstruction or gangrene; E66.01 Morbid (severe) obesity due to excess calories; Z68.43 Body mass index [BMI] 50.0-59.9, adult; I12.9 Hypertensive chronic kidney disease with stage 1 through stage 4 chronic kidney disease, or unspecified chronic kidney disease; N18.9 Chronic kidney disease, unspecified; F41.1 Generalized anxiety disorder; F33.1 Major depressive disorder, recurrent, moderate; D68.51 Activated protein C resistance; Z79.01 Long term (current) use of anticoagulants; Z86.718 Personal history of other venous thrombosis and embolism; Z87.891 Personal history of nicotine dependence
CPT/HCPCS: 43239; A9270; J3010; J7120

== ENCOUNTER 2020-07-06 08:24 | Outpatient (CLI) | payer MEDICAID ==
[2020-07-06 09:09] LABS: BASOPHILS # (AUTO) 0.1 10^3/uL (0.0-0.1); BASOPHILS % (AUTO) 0.9 %; EOSINOPHILS # (AUTO) 0.2 10^3/uL (0.0-0.7); EOSINOPHILS % (AUTO) 2.8 %; HGB - HEMOGLOBIN 15.1 g/dL (14.0-18.0); LYMPHOCYTES # (AUTO) 0.9 10^3/uL (1.5-3.5); LYMPHOCYTES % (AUTO) 13.8 %; MEAN CORPUSCULAR HEMOGLOBIN 29.5 pg (27.0-31.0); MEAN CORPUSCULAR HGB CONC 33.3 g/dL (32.0-36.0); MEAN CORPUSCULAR VOLUME 88.8 fL (80.0-94.0); MEAN PLATELET VOLUME 10.4 fL (7.4-11.4); MONOCYTES # (AUTO) 0.5 10^3/uL (0.0-1.0); MONOCYTES % (AUTO) 6.9 %; NEUTROPHILS # (AUTO) 4.9 10^3/uL (1.5-6.6); NEUTROPHILS % (AUTO) 75.3 %; PLT - PLATELET COUNT 286 10^3/uL (130-450); RED BLOOD COUNT 5.11 10^6/uL (4.70-6.10); RED CELL DISTRIBUTION WIDTH 12.8 % (12.0-15.0); WHITE BLOOD COUNT 6.5 x10^3/uL (4.8-10.8)
[2020-07-06 09:30] LABS: ALBUMIN/GLOBULIN RATIO 1.3 (1.0-2.2); ALKALINE PHOSPHATASE 78 IU/L (42-121); ALT ALANINE AMINOTRANSFERASE 27 IU/L (10-60); AST ASPARTATE AMINOTRANSFERASE 18 IU/L (10-42); BILIRUBIN,TOTAL 0.7 mg/dL (0.2-1.0); BUN - BLOOD UREA NITROGEN 15 mg/dL (6-20); CALCIUM 9.6 mg/dL (8.5-10.3); CARBON DIOXIDE - CO2 27 mmol/L (21-32); CHLORIDE 101 mmol/L (101-111); CHOL/HDL RATIO 4.3 (<5.0); CHOLESTEROL 181 mg/dL; CREATININE 1.3 mg/dL (0.6-1.2); GLUCOSE 99 mg/dL (70-100); HDL CHOLESTEROL 42 mg/dL; LDL CHOLESTEROL,CALCULATED 121 mg/dL; LDL/HDL RATIO 2.9 (<3.6); SODIUM 140 mmol/L (135-145); TOTAL PROTEIN 7.2 g/dL (6.7-8.2); VLDL CHOLESTEROL 18 mg/dL
--- NOTE | 2020-07-06 10:10 | XRAY Report ---
PROCEDURE: Thoracic Spine 2 View INDICATIONS: RT KNEE-THORACIC BACK LUMBAR BACK PAIN,LAB DRAW TECHNIQUE: 3 views of the thoracic spine were acquired. COMPARISON: None. FINDINGS: Bones: No fractures or dislocations. There is mild rightward curvature of the thoracic spine with t he apex at T5. No suspicious bony lesions. 12 pairs of ribs are noted, and appear intact where visua lized. Soft tissues: No paravertebral stripe thickening. IMPRESSION: 1. No acute abnormality of the thoracic spine. 2. Mild rightward curvature of the thoracic spine with the apex at T5. Reviewed by: Cricket Barone on 07/06/2020 10:09 AM [facility] Approved by: Cricket Barone on 07/06/2020 10:09 AM PST Station ID: [id number]
--- NOTE | 2020-07-06 10:12 | XRAY Report ---
PROCEDURE: Lumbar Spine 2 View INDICATIONS: RT KNEE-THORACIC BACK LUMBAR BACK PAIN,LAB DRAW TECHNIQUE: 2 views of the lumbar spine were acquired. COMPARISON: None. FINDINGS: Bones: 5 [id number] vertebrae are present. Likely pars defects are seen at L5 with grade 1 ante rolisthesis and mild L5-S1 disc space narrowing.. Soft tissues: Overlying bowel gas pattern is normal. No suspicious soft tissue calcifications. IMPRESSION: 1. Grade 1 anterolisthesis of L5 over S1 with likely pars defects. 2. No acute abnormality. Reviewed by: Cricket Barone on 07/06/2020 10:11 AM [facility] Approved by: Cricket Barone on 07/06/2020 10:11 AM [facility] Station ID: [id number]
--- NOTE | 2020-07-06 10:21 | XRAY Report ---
PROCEDURE: Knee 2 View RT INDICATIONS: RT KNEE-THORACIC BACK LUMBAR BACK PAIN,LAB DRAW TECHNIQUE: 2 views of the right knee(s) were acquired. COMPARISON: None. FINDINGS: Bones: No fractures or dislocations. No suspicious bony lesions. There is a subchondral cyst along the anterior tibia medially. Soft tissues: No joint effusion. No suspicious soft tissue calcifications. IMPRESSION: 1. No acute abnormality of the right knee. 2. Subchondral cyst of the right tibia anteriorly. 3. MRI of the knee might be helpful to better evaluate. Reviewed by: Cricket Barone on 07/06/2020 10:19 AM [facility] Approved by: Cricket Barone on 07/06/2020 10:19 AM [facility] Station ID: [id number]
[2020-07-06 13:52] LABS: HEMOGLOBIN A1c% 5.4 % (4.27-6.07)
== END 2020-07-06 08:25 | disposition home or self-care (01) ==
LOC: LAB 08:24 → DI 08:25
PROVIDERS: ATTEND Physician Assistant
DX: Z00.00 Encounter for general adult medical examination without abnormal findings (principal); M25.561 Pain in right knee; M85.661 Other cyst of bone, right lower leg; M54.6 Pain in thoracic spine; M54.5 Low back pain; I10 Essential (primary) hypertension
CPT/HCPCS: 36415; 80053; 80061; 83036; 83721; 84443; 85025

== ENCOUNTER 2020-12-01 08:21 | Outpatient (CLI) | payer MEDICAID ==
--- NOTE | 2020-12-01 14:00 | Ultrasound Report ---
PROCEDURE: Arterial Visceral Complete INDICATIONS: HYPERTENSION BENIGN ESSENTIAL TECHNIQUE: Real time scanning was performed of the aorta, celiac trunk, superior and inferior mesent [place] arteries, with color and pulsed Doppler interrogation of the mesenteric vessels. COMPARISON: None FINDINGS: Aortic peak systolic velocity: 67.4 cm/s. Right: The right kidney measures 11.2 x 4.7 x 5.7 cm. The renal vein is patent. No hydronephrosis. No solid or cystic mass. Renal artery proximal: Not seen due to bowel gas Renal artery mid: PSV 45.4 cm/s, RAR 0.7 Renal artery distal: 43.7 cm/s RAR 0.6 Hilum 68.9 cm/s. RAR 1.0 Normal perfusion is seen in the right superior, mid, and inferior pole. Left: The left kidney measures 12.9 x 5.3 x 4.5 cm. The renal vein is patent. No hydronephrosis. No solid o r cystic mass. Renal artery proximal: Not seen due to bowel gas Renal artery mid: 91.5 cm/s. RAR 1.4 Renal artery distal: PSV 60.2. RAR 0.9 Hilum PSV 33.3 cm/s. RAR 0.5 Normal perfusion is seen in the left superior, mid, and inferior pole. IMPRESSION: No ultrasound evidence of renal artery stenosis. Reviewed by: Cricket Barone on 12/01/2020 1:59 PM PDT Approved by: Cricket Barone on 12/01/2020 1:59 PM PDT Station ID: [id number]
== END 2020-12-01 08:22 | disposition home or self-care (01) ==
LOC: DI 08:21
PROVIDERS: ATTEND Physician Assistant Medical
DX: I10 Essential (primary) hypertension (principal)
CPT/HCPCS: 93975

== ENCOUNTER 2021-09-13 10:05 | Outpatient (CLI) | payer MEDICAID ==
[2021-09-13 10:26] LABS: BASOPHILS # (AUTO) 0.1 10^3/uL (0.0-0.1); BASOPHILS % (AUTO) 0.8 %; EOSINOPHILS # (AUTO) 0.2 10^3/uL (0.0-0.7); EOSINOPHILS % (AUTO) 2.8 %; HCT - HEMATOCRIT 44.7 % (42.0-52.0); HGB - HEMOGLOBIN 14.9 g/dL (14.0-18.0); LYMPHOCYTES # (AUTO) 1.3 10^3/uL (1.5-3.5); LYMPHOCYTES % (AUTO) 16.2 %; MEAN CORPUSCULAR HEMOGLOBIN 29.2 pg (27.0-31.0); MEAN CORPUSCULAR HGB CONC 33.3 g/dL (32.0-36.0); MEAN CORPUSCULAR VOLUME 87.5 fL (80.0-94.0); MEAN PLATELET VOLUME 9.4 fL (7.4-11.4); MONOCYTES # (AUTO) 0.6 10^3/uL (0.0-1.0); NEUTROPHILS # (AUTO) 5.6 10^3/uL (1.5-6.6); NEUTROPHILS % (AUTO) 71.8 %; PLT - PLATELET COUNT 325 10^3/uL (130-450); RED BLOOD COUNT 5.11 10^6/uL (4.70-6.10); RED CELL DISTRIBUTION WIDTH 13.2 % (12.0-15.0); WHITE BLOOD COUNT 7.8 x10^3/uL (4.8-10.8)
[2021-09-13 10:36] LABS: ALBUMIN 3.9 g/dL (3.2-5.5); ALKALINE PHOSPHATASE 72 IU/L (42-121); ALT ALANINE AMINOTRANSFERASE 28 IU/L (10-60); AST ASPARTATE AMINOTRANSFERASE 21 IU/L (10-42); BILIRUBIN,TOTAL 0.9 mg/dL (0.2-1.0); BUN - BLOOD UREA NITROGEN 19 mg/dL (6-20); CALCIUM 9.5 mg/dL (8.5-10.3); CARBON DIOXIDE - CO2 24 mmol/L (21-32); CHLORIDE 102 mmol/L (101-111); CHOL/HDL RATIO 4.8 (<5.0); CHOLESTEROL 201 mg/dL; CREATININE 1.3 mg/dL (0.6-1.2); GFR - MDRD 60 (>89); GLUCOSE 99 mg/dL (70-100); HDL CHOLESTEROL 42 mg/dL; LDL CHOLESTEROL,CALCULATED 140 mg/dL; LDL/HDL RATIO 3.3 (<3.6); POTASSIUM 4.1 mmol/L (3.5-5.0); SODIUM 137 mmol/L (135-145); TOTAL PROTEIN 7.7 g/dL (6.7-8.2); TRIGLYCERIDES 96 mg/dL; VLDL CHOLESTEROL 19 mg/dL
[2021-09-13 10:48] LABS: THYROID STIMULATING HORMONE 1.6 uIU/mL (0.34-5.60)
== END 2021-09-13 10:06 | disposition home or self-care (01) ==
LOC: LAB 10:05
PROVIDERS: ATTEND Physician Assistant Medical
DX: Z00.00 Encounter for general adult medical examination without abnormal findings (principal); K21.9 Gastro-esophageal reflux disease without esophagitis; Z86.39 Personal history of other endocrine, nutritional and metabolic disease; Z12.5 Encounter for screening for malignant neoplasm of prostate
CPT/HCPCS: 36415; 80053; 80061; 83721; 84153; 84443; 85025

== ENCOUNTER 2022-08-05 10:52 | Outpatient (CLI) | payer MEDICAID ==
--- NOTE | 2022-08-05 12:21 | XRAY Report ---
PROCEDURE: Knee 3 View RT INDICATIONS: KNEE PAIN TECHNIQUE: 3 views of the right knee(s) were acquired. COMPARISON: X-ray knee 07/06/2020 FINDINGS: Bones: No fractures or dislocations. No suspicious bony lesions. There is lateral patellar subluxa tion. There is at least mild medial and lateral compartment narrowing appearing more prominent medial ly. However, this could be secondary to patient positioning. No erosions. Minimal patellofemoral comp artment narrowing. Soft tissues: No joint effusion. No suspicious soft tissue calcifications. IMPRESSION: Medial lateral compartment narrowing as above relatively unchanged. Pelvis could represe nt early arthritic change, image positioning may exacerbate finding. Reviewed by: Alba Durant MD on 08/05/2022 12:20 PM PST Approved by: Alba Durant MD on 08/05/2022 12:20 PM PST Station ID: [id number]
== END 2022-08-05 10:53 | disposition home or self-care (01) ==
LOC: DI 10:52
PROVIDERS: ATTEND Physician Assistant Medical
DX: M25.861 Other specified joint disorders, right knee (principal)

== ENCOUNTER 2023-07-03 10:46 | Outpatient (CLI) | payer MEDICAID ==
[2023-07-03 11:01] LABS: BASOPHILS # (AUTO) 0.1 10^3/uL (0.0-0.1); BASOPHILS % (AUTO) 1.4 %; EOSINOPHILS # (AUTO) 0.2 10^3/uL (0.0-0.7); EOSINOPHILS % (AUTO) 2.5 %; HCT - HEMATOCRIT 48.1 % (42.0-52.0); HGB - HEMOGLOBIN 15.5 g/dL (14.0-18.0); LYMPHOCYTES # (AUTO) 1.4 10^3/uL (1.5-3.5); LYMPHOCYTES % (AUTO) 19.2 %; MEAN CORPUSCULAR HEMOGLOBIN 28.2 pg (27.0-31.0); MEAN CORPUSCULAR HGB CONC 32.2 g/dL (32.0-36.0); MEAN CORPUSCULAR VOLUME 87.5 fL (80.0-94.0); MEAN PLATELET VOLUME 9.6 fL (7.4-11.4); MONOCYTES # (AUTO) 0.6 10^3/uL (0.0-1.0); MONOCYTES % (AUTO) 7.7 %; NEUTROPHILS # (AUTO) 4.9 10^3/uL (1.5-6.6); NEUTROPHILS % (AUTO) 68.9 %; PLT - PLATELET COUNT 331 10^3/uL (130-450); RED CELL DISTRIBUTION WIDTH 13.5 % (12.0-15.0); WHITE BLOOD COUNT 7.2 x10^3/uL (4.8-10.8)
[2023-07-03 11:16] LABS: ALBUMIN 4.1 g/dL (3.2-5.5); ALBUMIN/GLOBULIN RATIO 1.2 (1.0-2.2); ALKALINE PHOSPHATASE 83 IU/L (42-121); ALT ALANINE AMINOTRANSFERASE 17 IU/L (10-60); AST ASPARTATE AMINOTRANSFERASE 12 IU/L (10-42); BILIRUBIN,TOTAL 0.6 mg/dL (0.2-1.0); BUN - BLOOD UREA NITROGEN 12 mg/dL (6-20); CALCIUM 9.9 mg/dL (8.5-10.3); CARBON DIOXIDE - CO2 26 mmol/L (21-32); CHLORIDE 102 mmol/L (101-111); CHOL/HDL RATIO 4.6 (<5.0); CHOLESTEROL 185 mg/dL; GFR - MDRD 80 (>89); GLUCOSE 103 mg/dL (74-104); HDL CHOLESTEROL 40 mg/dL; LDL CHOLESTEROL,CALCULATED 119 mg/dL; POTASSIUM 4.3 mmol/L (3.5-4.5); SODIUM 136 mmol/L (135-145); TOTAL PROTEIN 7.4 g/dL (6.4-8.9); TRIGLYCERIDES 130 mg/dL (48-352); VLDL CHOLESTEROL 26 mg/dL
== END 2023-07-03 10:47 | disposition home or self-care (01) ==
LOC: LAB 10:46
PROVIDERS: ATTEND Physician Assistant Medical
DX: Z00.00 Encounter for general adult medical examination without abnormal findings (principal); I10 Essential (primary) hypertension; Z86.39 Personal history of other endocrine, nutritional and metabolic disease; Z12.5 Encounter for screening for malignant neoplasm of prostate
CPT/HCPCS: 36415; 80053; 80061; 83721; 84153; 84443; 85025